=== PATIENT | female | born 1995 | race Two or more races ===

== ENCOUNTER → 2022-12-25 | Outpatient (REF) | payer OTHER | LOC: M SFHCWAGY 09:54 | PROVIDERS: ATTEND Nurse Practitioner Family | DX: Z12.4 Encounter for screening for malignant neoplasm of cervix (principal) | CPT/HCPCS: 87624; G0123; G0463 ==

== ENCOUNTER 2024-09-18 09:16 | Emergency (ER) | payer OTHER ==
[~2024-09-18] VITALS: Ht 157.5 cm; Wt 48.2 kg
[2024-09-18] MEDS ORDERED: DEPO150I12 IM (09:28)
[2024-09-18 13:33] VITALS: BP 109/77; TEMP 98.9; O2SAT 99
== END 2024-09-18 13:47 | disposition home or self-care (01) ==
LOC: M ED 09:16
DX: U07.1 COVID-19 (principal); Z88.1 Allergy status to other antibiotic agents

== ENCOUNTER → 2025-05-11 | Outpatient (CLI) | payer OTHER ==
[~2025-05-11] MED LIST: DEPO150I12 IM
== END ==
LOC: M RAD 14:00
PROVIDERS: ATTEND Nurse Practitioner Family
DX: R10.2 Pelvic and perineal pain (principal)

== ENCOUNTER → 2025-05-15 | Outpatient (REF) | payer OTHER | LOC: M SFHCWAGY 12:36 | PROVIDERS: ATTEND Nurse Practitioner Family | DX: R10.2 Pelvic and perineal pain (principal) ==